=== PATIENT | male | born 1980 | race American Indian/Alaskan Native ===

== ENCOUNTER 2017-07-09 03:06 | Emergency (ER) | payer OTHER ==
--- NOTE | 2017-07-09 03:22 | ED ---
Alcohol HPI - General Source: patient, EMS, RN notes reviewed Mode of arrival: EMS Limitations: no limitations <Faustino Costa - Last Filed: 07/09/17 03:20> <Gustavo Mahan - Last Filed: 07/30/17 14:07> <Jan Webb - Last Filed: 08/01/17 10:31> - General Chief Complaint: Alcohol Stated Complaint: ETOH Time Seen by Provider: 07/09/17 03:15 - History of Present Illness Initial Comments: This a 37-year-old male presents emergency Department via EMS with [facility] for alcohol intoxication. Patient is currently homeless he states he does drink alcohol daily has no physical complaints. It is not suicidal or homicidal. Patient was found to be too intoxicated to be released so patient was brought here for evaluation. Patient denies any chest pain, shortness breath, headache, dizziness, nausea vomiting diarrhea constipation. ( Faustino Costa) - Related Data Home Medications Medication Instructions Recorded Confirmed Unable To Assess [Unable to Assess] 07/09/17 07/09/17 Review of Systems ROS Other: All systems not noted in ROS Statement are negative. <Faustino Costa - Last Filed: 07/09/17 03:20> ROS Other: All systems not noted in ROS Statement are negative. <Gustavo Mahan - Last Filed: 07/30/17 14:07> ROS Other: All systems not noted in ROS Statement are negative. <Jan Webb - Last Filed: 08/01/17 10:31> ROS Statement: Those systems with pertinent positive or pertinent negative responses have been documented in the HPI. Past Medical History Past Medical History: No Reported History History of Any Multi-Drug Resistant Organisms: None Reported Past Surgical History: No Surgical Hx Reported Past Psychological History: No Psychological Hx Reported Smoking Status: Current every day smoker Past Alcohol Use History: Daily Past Drug Use History: None Reported <Faustino Costa - Last Filed: 07/09/17 03:20> General Exam Limitations: no limitations General appearance: alert, in no apparent distress, appears intoxicated Head exam: Present: atraumatic, normocephalic, normal inspection Eye exam: Present: normal appearance, PERRL, EOMI. Absent: scleral icterus, conjunctival injection, periorbital swelling ENT exam: Present: normal exam, normal oropharynx, mucous membranes moist, TM's normal bilaterally, normal external ear exam Neck exam: Present: normal inspection, full ROM. Absent: tenderness, meningismus, lymphadenopathy Respiratory exam: Present: normal lung sounds bilaterally. Absent: respiratory distress, wheezes, rales, rhonchi, stridor Cardiovascular Exam: Present: regular rate, normal rhythm, normal heart sounds. Absent: systolic murmur, diastolic murmur, rubs, gallop, clicks Neurological exam: Present: alert, oriented X3, CN II-XII intact Skin exam: Present: warm, dry, intact, normal color. Absent: rash <Faustino Costa - Last Filed: 07/09/17 03:20> Vital Signs 07/09/17 07/09/17 07/09/17 03:10 03:14 08:15 Temperature 97.8 F Pulse Rate 95 92 Respiratory 18 16 Rate Blood Pressure 139/81 O2 Sat by Pulse 98 Oximetry 07/09/17 09:00 Temperature 98 F Pulse Rate 95 Respiratory 18 Rate Blood Pressure 112/73 O2 Sat by Pulse 99 Oximetry Medical Decision Making <Faustino Costa - Last Filed: 07/09/17 03:20> <Gustavo Mahan - Last Filed: 07/30/17 14:07> <Jan Webb - Last Filed: 08/01/17 10:31> - Medical Decision Making Patient's 37-year-old man brought for intoxication. Patient is observed pending sobriety when he is cleared for discharge. (Jan Webb) Disposition <Faustino Costa - Last Filed: 07/09/17 03:20> Is patient prescribed a controlled substance at d/c from ED?: No Time of Disposition: 14:14 <Gustavo Mahan - Last Filed: 07/30/17 14:07> Is patient prescribed a controlled substance at d/c from ED?: No <Jan Webb - Last Filed: 08/01/17 10:31> Clinical Impression: Alcoholic intoxication Disposition: HOME SELF-CARE Instructions: Alcohol Intoxication (ED) Referrals: None,Stated [Primary Care Provider] - 1-2 days
[2017-07-09 09:00] VITALS: BP 112/73; PULSE 95; RESP 18; TEMP 98
--- NOTE | 2017-07-11 05:52 | CDI ---
Documentation Clarification OP Dear Faustino LUX, PAC Please do addendum to ED report for missing Clinical impression & Disposition. Thank you, Luz Maria Jacques Bariatric Physician If you have any questions, please contact S[employer] Tester at [phone] i signed the patient out to dr kauffman not my patient MTDD
== END 2017-07-09 09:01 | disposition home or self-care (01) ==
LOC: EC 03:06
DX: F10.120 Alcohol abuse with intoxication, uncomplicated (principal); F17.200 Nicotine dependence, unspecified, uncomplicated
CPT/HCPCS: 82075; 99284